=== PATIENT | female | born 1985 | race Two or more races ===

== ENCOUNTER 2018-09-16 09:30 | Inpatient (IN) | payer BC, OTHER ==
[~2018-09-16 09:30] MED LIST: ELECTROLYTE-148 SOLN 500 ML IV SCH
[2018-09-16] MEDS ORDERED: ELECTROLYTE-148 SOLN 500 ML IV SCH (10:00)
[2018-09-16 10:31] VITALS: BMI 28.3
[2018-09-16] MEDS ORDERED: CITRIC ACID/SODIUM CITRATE 30 ML UNIT-DOSE CUP PO ONE (10:56)
--- NOTE | 2018-09-16 11:01 | HP ---
Past Medical History - Admission History Source: Patient, Medical Record - Past Medical History Cardiovascular: No: HTN Pulmonary: No: Asthma Gastrointestinal: No: GERD Hepatobiliary: No: Hepatitis B, Hepatitis C Reproductive: No: Ectopic ...: 2 ...Para: 1 ...Term: 1 ...: 0 ...Spon : 0 ...Induced : 0 ...Multiple Gestation: 0 ...LMP: 12/17/17 ...EDC by [facility]: 09/23/18 Psych: No: Anxiety, Bipolar, Depression Endocrine: No: Diabetes Mellitus, Hypothyroidism - Past Surgical History Past Surgical History: Yes: Appendectomy, Hx Myomectomy: No Hx Transabdominal Cerclage: No - Smoking History Smoking history: Unknown if ever smoked Have you smoked in the past 12 months: No Aproximately how many cigarettes per day: 0 - Alcohol/Substance Use Hx Alcohol Use: No History of Substance Use: reports: None - Social History ADL: Independent History of Recent Travel: No Home Medications - Allergies Allergies/Adverse Reactions: Allergies Allergy/AdvReac Type Severity Reaction Status Date / Time No Known Allergies Allergy Verified 06/14/13 13:49 - Home Medications Home Medications: Ambulatory Orders Ibuprofen [Motrin -] 600 mg PO TID #21 tablet 06/14/13 HYDROmorphone [Dilaudid -] 2 mg PO Q6H #28 tablet MDD 4 02/02/16 One Tablet 1 tab PO DAILY 09/16/18 Review of Systems - Review of Systems Constitutional: reports: No Symptoms Eyes: reports: No Symptoms HENT: reports: No Symptoms Neck: reports: No Symptoms Cardiovascular: reports: No Symptoms Respiratory: reports: No Symptoms Gastrointestinal: reports: No Symptoms Genitourinary: reports: No Symptoms Breasts: reports: No Symptoms Reported Musculoskeletal: reports: No Symptoms Integumentary: reports: No Symptoms Neurological: reports: No Symptoms Endocrine: reports: No Symptoms Hematology/Lymphatic: reports: No Symptoms Psychiatric: reports: No Symptoms Physical Exam - Maternity Vital Signs: Vital Signs Temperature 98.4 F 09/16/18 09:30 Pulse Rate 102 H 09/16/18 09:30 Respiratory Rate 20 09/16/18 09:30 Blood Pressure 105/72 09/16/18 09:30 O2 Sat by Pulse Oximetry (%) Constitutional: Yes: Well Nourished, No Distress, Calm Eyes: Yes: Conjunctiva Clear, EOM Intact HENT: Yes: Atraumatic, Normocephalic Neck: Yes: Supple, Trachea Midline Cardiovascular: Yes: Regular Rate and Rhythm Lungs: Clear to auscultation Breast(s): Yes: WNL - Abdominal Exam/OB Fundal Height: 39 Number of Fetuses: Single Presentation: Vertex Category: I Accelerations: Uniform Decelerations: None - Vaginal Exam/OB Vaginal Bleediing: No Amniotic Membrane Status: Intact - Physical Exam Psychiatric: Yes: Alert, Oriented Hemorrhage Risk Assessment - Risk Factors Medium Risk Factors: Yes: None High Risk Factors: Yes: None Risk Score: 1 Risk Level: Medium Risk Problem List - Problems (1) Term Code(s): Z34.80 - ENCOUNTER FOR SUPRVSN OF NORMAL , UNSP TRIMESTER (2) History of Code(s): Z98.891 - HISTORY OF UTERINE SCAR FROM PREVIOUS SURGERY Assessment/Plan 33 y/o with SIUP at 39 weeks, prior delivery AFVSS FHTS cat 1 NPO Dunn anesthesia / nursery aware
--- NOTE | 2018-09-16 11:02 | PN ---
Progress Note (short form) - Note Progress Note: No GBS status available - is pending - as pt declined having GBS swab performed in office until last week. Results pending. When available will provide to nursery. Problem List - Problems (1) Term Code(s): Z34.80 - ENCOUNTER FOR SUPRVSN OF NORMAL , UNSP TRIMESTER (2) History of Code(s): Z98.891 - HISTORY OF UTERINE SCAR FROM PREVIOUS SURGERY
[2018-09-16] MEDS ORDERED: OXYTOCIN 20 UNITS in 0.9% NS 20 UNIT/1,000 ML INFUS.BAG IV ONE (11:12)
[2018-09-16] MEDS ORDERED: morphine SULFATE/Preservative Free 0.5 MG/ML (1cc Syringe) EP ONE (11:19)
[2018-09-16] MEDS ORDERED: ONDANSETRON 4 MG/2 ML VIAL IVPUSH PRN (11:19)
[2018-09-16] MEDS ORDERED: ceFAZolin SODIUM 1 GM VIAL ONE (11:30)
[2018-09-16] MEDS ORDERED: PHENYLEPHRINE HCL 10 MG/1 ML SINGLE DOSE VIAL ONE (11:55)
[2018-09-16] MEDS ORDERED: OXYTOCIN 10 UNITS/ML VIAL ONE (11:56)
[2018-09-16] MEDS ORDERED: oxyCODONE HCL 5 MG TABLET PO PRN (12:27)
[2018-09-16] MEDS ORDERED: METHYLERGONOVINE MALEATE 0.2 MG/1 ML AMP IM PRN (12:27)
--- NOTE | 2018-09-16 12:27 | OP ---
Operative Note - Note: Operative Date: 09/16/18 Pre-Operative Diagnosis: prior delivery, declined TOLAC, 39 weeks gestation Operation: repeat low transverse delivery Findings: normal b/l tubes and ovaries Post-Operative Diagnosis: Same as Pre-op Anesthesia: Spinal Specimens Removed: placenta Estimated Blood Loss (mls): 600 Operative Report Dictated: Yes
[2018-09-16] MEDS: OXYTOCIN 20 UNITS in 0.9% NS 20 UNIT/1,000 ML INFUS.BAG IV SCH (13:20)
[2018-09-16] MEDS ORDERED: ONDANSETRON 4 MG/2 ML VIAL ONE (14:20)
[2018-09-16] MEDS: IBUPROFEN 800 MG/8 ML IJ IVPB PRN (17:33)
[2018-09-17] MEDS: IBUPROFEN 800 MG/8 ML IJ IVPB PRN (04:03)
--- NOTE | 2018-09-17 06:26 | PN ---
Progress Note (SOAP) - Subjective Chief Complaint: Pt doing well - Current Medications Current Medications: Active Medications Acetaminophen (Tylenol -) 650 mg PO Q4H PRN PRN Reason: MODERATE PAIN Bisacodyl (Dulcolax Suppository -) 10 mg RC PRN PRN PRN Reason: CONSTIPATION Diphenhydramine HCl (Benadryl Injection -) 25 mg IVPUSH Q4H PRN PRN Reason: Pruritis Last Admin: 09/16/18 14:14 Dose: 25 mg Oxytocin/Sodium Chloride (Normal Saline+20 Units Oxytocin -) 20 unit in 1,000 mls @ 125 mls/hr IV ASDIR POP Last Admin: 09/16/18 13:20 Dose: 125 mls/hr Ibuprofen (Motrin -) 600 mg PO Q4H PRN PRN Reason: PAIN LEVEL 1 - 3 Ibuprofen (Caldolor Injection -) 800 mg IVPB Q6H PRN PRN Reason: PAIN SCALE 1-5 Last Admin: 09/17/18 04:03 Dose: 800 mg Methylergonovine Maleate (Methergine Injection -) 0.2 mg IM Q4H PRN PRN Reason: Excessive Bleeding (L&D) Ondansetron HCl (Zofran Injection) 4 mg IVPUSH Q4H PRN PRN Reason: NAUSEA Last Admin: 09/16/18 14:15 Dose: 4 mg Oxycodone HCl (Roxicodone -) 5 mg PO Q4H PRN PRN Reason: PAIN LEVEL 4 - 6 Oxycodone HCl (Roxicodone -) 10 mg PO Q4H PRN PRN Reason: PAIN LEVEL 7 - 10 Simethicone (Mylicon -) 80 mg PO Q4H PRN PRN Reason: GAS - Objective Vital Signs: Vital Signs Temperature 98.8 F 09/17/18 06:00 Pulse Rate 83 09/17/18 06:00 Respiratory Rate 20 09/17/18 06:00 Blood Pressure 101/53 L 09/17/18 06:00 O2 Sat by Pulse Oximetry (%) 100 09/16/18 13:15 Constitutional: Yes: Well Nourished, No Distress Gastrointestinal: Yes: WNL, Soft ....Post : Yes: Uterus firm, Uterus non-tender Breast(s): Yes: WNL Musculoskeletal: Yes: WNL Extremities: Yes: WNL Edema: No Wound/Incision: Yes: Dressing Dry and Intact Assessment/Plan SP repeat CS POD1 Plan COntinue present management
[2018-09-17 08:07] LABS: BASO % 0.2 % (0-2.0); EOS % 0.8 % (0-4.5); HEMATOCRIT 22.6 % (32.4-45.2); HEMOGLOBIN 7.5 GM/dL (10.7-15.3); LYMPH % 13.8 % (8-40); MCH 27.2 pg (25.7-33.7); MCHC 33.1 g/dl (32.0-36.0); MEAN CELL VOLUME 82.2 fl (80-96); MEAN PLT VOLUME 10.7 fl (7.5-11.1); MONO % 6.1 % (3.8-10.2); NEUT % 79.1 % (42.8-82.8); PLATELET COUNT 181 K/MM3 (134-434); RBC 2.75 M/mm3 (3.60-5.2); RDW 15.9 % (11.6-15.6); WHITE BLOOD COUNT 8.5 K/mm3 (4.0-10.0)
--- NOTE | 2018-09-17 12:12 | PN ---
Progress Note (short form) - Note Progress Note: Anesthesia post op note. POD#1. S/P under spinal with duramorph. VSS. No apparent post anesthesia complications.Signed off.
[2018-09-17] MEDS ORDERED: BISACODYL 10 MG SUPP.RECT RC PRN (12:27)
[2018-09-17] MEDS: IBUPROFEN 600 MG TABLET (FP) PO PRN (21:04)
[2018-09-17] MEDS: ACETAMINOPHEN 325 MG TABLET (FP) PO PRN (21:05)
[2018-09-17] MEDS: SIMETHICONE 80 MG TAB.CHEW (FP) PO PRN (21:06)
[2018-09-18] MEDS: SIMETHICONE 80 MG TAB.CHEW (FP) PO PRN ×4 (04:51→20:40)
[2018-09-18] MEDS: ACETAMINOPHEN 325 MG TABLET (FP) PO PRN ×2 (04:51→20:39)
[2018-09-18] MEDS: IBUPROFEN 600 MG TABLET (FP) PO PRN ×4 (04:51→20:38)
[2018-09-18] MEDS: oxyCODONE HCL 5 MG TABLET PO PRN ×3 (10:40→20:39)
--- NOTE | 2018-09-18 17:24 | PN ---
Post Progress Note Type of Delivery: Repeat C/S Vital Signs: Vital Signs Temperature 98.3 F 09/18/18 08:19 Pulse Rate 96 H 09/18/18 08:19 Respiratory Rate 20 09/18/18 08:19 Blood Pressure 122/72 09/18/18 08:19 O2 Sat by Pulse Oximetry (%) 100 09/16/18 13:15 - Labs Labs: CBC WBC 8.5 K/mm3 (4.0-10.0) 09/17/18 06:30 RBC 2.75 M/mm3 (3.60-5.2) L 09/17/18 06:30 Hgb 7.5 GM/dL (10.7-15.3) L 09/17/18 06:30 Hct 22.6 % (32.4-45.2) L D 09/17/18 06:30 MCV 82.2 fl (80-96) 09/17/18 06:30 MCH 27.2 pg (25.7-33.7) 09/17/18 06:30 MCHC 33.1 g/dl (32.0-36.0) 09/17/18 06:30 RDW 15.9 % (11.6-15.6) H 09/17/18 06:30 Plt Count 181 K/MM3 (134-434) D 09/17/18 06:30 MPV 10.7 fl (7.5-11.1) 09/17/18 06:30 Absolute Neuts (auto) 6.8 K/mm3 (1.5-8.0) 09/17/18 06:30 Neutrophils % 79.1 % (42.8-82.8) 09/17/18 06:30 Lymphocytes % 13.8 % (8-40) D 09/17/18 06:30 Monocytes % 6.1 % (3.8-10.2) 09/17/18 06:30 Eosinophils % 0.8 % (0-4.5) 09/17/18 06:30 Basophils % 0.2 % (0-2.0) 09/17/18 06:30 Nucleated RBC % 0 % (0-0) 09/17/18 06:30 Problem List - Problems (1) Term Code(s): Z34.80 - ENCOUNTER FOR SUPRVSN OF NORMAL , UNSP TRIMESTER (2) History of Code(s): Z98.891 - HISTORY OF UTERINE SCAR FROM PREVIOUS SURGERY
[2018-09-18] MEDS: OXYTOCIN 20 UNITS in 0.9% NS 20 UNIT/1,000 ML INFUS.BAG IV SCH (19:47)
[2018-09-19] MEDS: IBUPROFEN 600 MG TABLET (FP) PO PRN ×2 (03:32→14:03)
[2018-09-19] MEDS: SIMETHICONE 80 MG TAB.CHEW (FP) PO PRN ×3 (03:32→14:04)
[2018-09-19] MEDS: ACETAMINOPHEN 325 MG TABLET (FP) PO PRN ×3 (03:32→14:02)
[2018-09-19] MEDS: oxyCODONE HCL 5 MG TABLET PO PRN ×2 (03:33→07:40)
[2018-09-19 08:16] LABS: BASO % 0.2 % (0-2.0); EOS % 2.9 % (0-4.5); HEMATOCRIT 23.4 % (32.4-45.2); HEMOGLOBIN 7.7 GM/dL (10.7-15.3); LYMPH % 26.2 % (8-40); MCH 26.9 pg (25.7-33.7); MCHC 32.9 g/dl (32.0-36.0); MEAN CELL VOLUME 81.9 fl (80-96); MEAN PLT VOLUME 9.8 fl (7.5-11.1); MONO % 5.5 % (3.8-10.2); NEUT % 65.2 % (42.8-82.8); PLATELET COUNT 213 K/MM3 (134-434); RBC 2.86 M/mm3 (3.60-5.2); RDW 15.8 % (11.6-15.6); WHITE BLOOD COUNT 6.5 K/mm3 (4.0-10.0)
--- NOTE | 2018-09-19 10:49 | DS ---
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 Vital Signs: Vital Signs Temperature 97.0 F L 09/18/18 22:00 Pulse Rate 88 09/18/18 22:00 Respiratory Rate 18 09/18/18 22:00 Blood Pressure 110/66 09/18/18 22:00 O2 Sat by Pulse Oximetry (%) 100 09/16/18 13:15 Constitutional: Yes: Well Nourished, No Distress, Calm Eyes: Yes: Conjunctiva Clear, EOM Intact HENT: Yes: Normocephalic Neck: Yes: Trachea Midline Cardiovascular: Yes: Regular Rate and Rhythm Respiratory: Yes: Regular Gastrointestinal: Yes: Normal Bowel Sounds ....Post : Yes: Uterus firm, Uterus non-tender Wound/Incision: Yes: Clean/Dry, Well Approximated Neurological: Yes: Alert, Oriented Labs: CBC, BMP 09/19/18 07:15 Delivery - Delivery Section: Repeat, Low Flap Transverse Type of Anesthesia: Local, Spinal Episiotomy/Laceration: None EBL (cc): 600 Delivery, Single - Stages of Labor Date of Delivery: 09/16/18 Time of Delivery: 11:56 Time Placenta Delivered: 11:57 - Condition of Infant Customs 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 Pt underwent normal uncomplicated procedure and normal post recovery and was discharged home in stable condition on post day 3. Condition: Good - Instructions Diet, Activity, Other Instructions: Physical activity Resume your normal everyday activity as tolerated no heavy lifting or exercise until seen by your surgeon. You may walk unlimited amounts and climb stairs. You may resume driving the car when you feel safe and comfortable behind the wheel. No sexual activity as instructed. Wound care If there are tapes present on the skin, you may shower over them. Leave them in place, they will fall off in 7-10 days. Diet There are no dietary restrictions. Eat healthy, high-fiber foods. Drink 6 to 8 glasses of liquid each day. This will assist in keeping your bowels regular. Pain management You may take Tylenol or Ibuprofen (for example, Motrin, Advil etc.) for mild pain, if any prescription pain medicine is ordered should be taken as prescribed for moderate to severe pain. Call MD for any of the following: Severe pain not relieved by medication Fever of 101 or higher Excessive bleeding or drainage on dressing Inability to urinate Referrals: Lenore Gary DO [Staff Physician] - 1 Week Disposition: HOME - Home Medications Comprehensive Discharge Medication List: Ambulatory Orders Ibuprofen [Motrin -] 600 mg PO TID #21 tablet 06/14/13 HYDROmorphone [Dilaudid -] 2 mg PO Q6H #28 tablet MDD 4 02/02/16 One Tablet 1 tab PO DAILY 09/16/18
[2018-09-19 12:14] VITALS: BP 123/76; PULSE 91; TEMP 97.6
[2018-09-19 13:36] LABS: ACANTHOCYTES 1+; ANISOCYTOSIS 1+; MACROCYTOSIS 0; PLATELET ESTIMATE NORMAL; TEAR DROP CELLS 1+
--- NOTE | 2018-09-25 20:40 | PATH ---
Surgical Pathology Report Patient Name: AGNIESZKA CALLES Med. Rec. #: [id number] /Age/Gender: 1985 (Age: 33) / F Account: [id number] Location: [facility] OBS/CORPORATE TREASURY ANALYST Taken: 09/16/2018 Received: 09/17/2018 Reported: 09/25/2018 Physicians: Lenore Gary M.D. Specimen(s) Received PLACENTA Clinical History 39 weeks gestation, no previous medical history Final Diagnosis PLACENTA, SECTION: 619 G THIRD TRIMESTER PLACENTA WITH TRIVASCULAR UMBILICAL CORD AND UNREMARKABLE PLACENTAL MEMBRANES. Electronically Signed Miesha Perez M.D. Gross Description The specimen is received fresh labeled placenta and is a 619 gram, 17.5 x 15.5 x 3.4 cm. placenta with attached membranes and umbilical cord. The attached membranes are moran, translucent with focal opacities and insert marginally. The umbilical cord measures 45 cm. in length and averages 1.3 cm. in diameter. The cord inserts eccentrically, 4 cm. to the nearest margin. No true knots or strictures are identified. Cut surface of the umbilical cord reveals 3 vessels. The surface is montanez-blue with minimal fibrin deposition and appropriate caliber vessels. The maternal surface is red-brown with focal defects. Sectioning reveals red-brown, spongy parenchyma. No lesions are identified. Automotive Service Director sections are submitted in three cassettes as follows: 1- membrane rolls and umbilical cord; 2-3- full thickness sections of placenta. 09/24/2018 saudi09/24/2018
== END 2018-09-19 14:15 | disposition home or self-care (01) | DRG 788 ==
LOC: JLDR 09:30 → J3W 15:37
PROVIDERS: ADMIT Obstetrics & Gynecology; ATTEND Obstetrics & Gynecology
PROC: 10D00Z1 Extraction of Products of Conception, Low, Open Approach (ICD-10-PCS; principal; 2018-09-16)
DX: O34.211 Maternal care for low transverse scar from previous cesarean delivery (principal); N85.8 Other specified noninflammatory disorders of uterus; Z3A.39 39 weeks gestation of pregnancy; Z37.0 Single live birth
CPT/HCPCS: 36415; 85025; 88307-TC